=== PATIENT | male | born 1960 | race Caucasian/White ===

== ENCOUNTER 2021-10-30 14:10 | Emergency (ER) | payer OTHER ==
[2021-10-30] MEDS ORDERED: ACETAMINOPHEN TAB 500 MG TAB PO STA (16:06)
--- NOTE | 2021-10-30 18:19 | ED ---
General Adult HPI - General Chief complaint: Fever Stated complaint: Covid Positive Time Seen by Provider: 10/30/21 17:53 Source: patient, RN notes reviewed, old records reviewed Mode of arrival: ambulatory Limitations: no limitations - History of Present Illness Initial comments: 61-year-old male presenting for treatment of coronavirus. Patient requesting monoclonal antibody infusion. He has been sent to [facility] for the past 7 days. He did test positive with a home test. His daughter also tested positive. He's had fever, cough, congestion, mild dyspnea. No central chest pain. - Related Data Home Medications Medication Instructions Recorded Confirmed Cholecalciferol [Vitamin D3 (25 50 mcg PO DAILY 10/30/21 10/30/21 Mcg = 1000 Iu)] Desvenlafaxine Succinate [Pristiq] 100 mg PO DAILY 10/30/21 10/30/21 Glucosamine HCl/Chondroitin Toussaint 1 cap PO BID 10/30/21 10/30/21 [Glucosamine-Chondroitin Cap] Multivitamins, Thera [Multivitamin 1 tab PO DAILY 10/30/21 10/30/21 (formulary)] Potassium Gluconate [Potassium 99 mg PO DAILY 10/30/21 10/30/21 Gluconate ER] Terazosin [Hytrin] 2 mg PO HS 10/30/21 10/30/21 Testosterone Cypionate 150 mg IM Q14D 10/30/21 10/30/21 [Depo-Testosterone] amLODIPine [Norvasc] 10 mg PO DAILY 10/30/21 10/30/21 lisinopriL [Zestril] 20 mg PO DAILY 10/30/21 10/30/21 Previous Rx's Medication Instructions Recorded Dexamethasone [Decadron] 6 mg PO DAILY 5 Days #5 tablet 10/30/21 Allergies Allergy/AdvReac Type Severity Reaction Status Date / Time No Known Allergies Allergy Verified 10/30/21 19:07 Review of Systems ROS Statement: Those systems with pertinent positive or pertinent negative responses have been documented in the HPI. ROS Other: All systems not noted in ROS Statement are negative. Past Medical History Past Medical History: Hypertension History of Any Multi-Drug Resistant Organisms: None Reported Past Surgical History: Back Surgery Past Psychological History: PTSD Smoking Status: Never smoker Past Alcohol Use History: None Reported Past Drug Use History: None Reported General Exam Limitations: no limitations General appearance: alert, in no apparent distress Head exam: Present: atraumatic, normocephalic Eye exam: Present: normal appearance, PERRL ENT exam: Present: normal exam Neck exam: Present: normal inspection. Absent: tenderness, meningismus Respiratory exam: Present: rhonchi. Absent: respiratory distress Cardiovascular Exam: Present: regular rate, normal rhythm GI/Abdominal exam: Present: soft. Absent: distended, tenderness Extremities exam: Present: normal inspection, normal capillary refill. Absent: pedal edema Neurological exam: Present: alert, oriented X3, CN II-XII intact. Absent: motor sensory deficit Psychiatric exam: Present: normal affect, normal mood Skin exam: Present: warm, dry, intact. Absent: cyanosis, diaphoretic Course Vital Signs 10/30/21 10/30/21 15:58 19:05 Temperature 102.6 F H 100.2 F H Pulse Rate 83 73 Respiratory 22 18 Rate Blood Pressure 135/82 105/64 O2 Sat by Pulse 92 L 92 L Oximetry Medical Decision Making - Medical Decision Making 61-year-old male with coronavirus. This was a home test, test is repeated in the emergency department. He is transfused monoclonal antibodies. His oxygen saturation is 94% on room air with very mild dyspnea. He will take vitamin C, zinc, vitamin D at home. Return parameters were discussed. He will monitor his oxygen level with pulse oximeter at home. - Lab Data Lab Results 10/30/21 Range/Units 18:09 Coronavirus (PCR) Detected A (Not Detectd) Disposition Clinical Impression: COVID-19 Disposition: HOME SELF-CARE Condition: Fair Instructions (If sedation given, give patient instructions): Coronavirus Disease 2019 (COVID-19) Prescriptions: Dexamethasone [Decadron] 6 mg PO DAILY 5 Days #5 tablet Is patient prescribed a controlled substance at d/c from ED?: No Referrals: None,Stated [Primary Care Provider] - 1-2 days Time of Disposition: 18:19
[2021-10-30] MEDS ORDERED: SODIUM CHLORIDE 0.9% 50 ML IVPB ONE (18:45)
[2021-10-30] MEDS ORDERED: SOTROVIMAB (EUA) 500 MG in SODIUM CHLORIDE 0.9% 100 ML IVPB ONE (18:45)
[2021-10-30] MEDS ORDERED: dexAMETHasone 2 MG TAB PO STA (19:53)
[2021-10-30 20:31] VITALS: TEMP 98.9
[2021-10-30 21:02] VITALS: BP 111/52; PULSE 72; RESP 18
== END 2021-10-30 21:02 | disposition home or self-care (01) ==
LOC: EC 14:10
DX: U07.1 COVID-19 (principal); I10 Essential (primary) hypertension; F43.10 Post-traumatic stress disorder, unspecified; Z79.899 Other long term (current) drug therapy
CPT/HCPCS: 99283; 96365; 87635; J8540; Q0247

== ENCOUNTER 2021-11-01 13:05 | Emergency (ER) | payer OTHER ==
--- NOTE | 2021-11-01 13:43 | ED ---
General Adult HPI - General Chief complaint: Shortness of Breath Stated complaint: COVID + w/ Symptoms Time Seen by Provider: 11/01/21 13:07 Source: patient, EMS, RN notes reviewed Mode of arrival: EMS - History of Present Illness Initial comments: 61-year-old male with a past medical history of hypertension presents to the emergency room for a chief complaint of shortness of breath. Patient has had COVID-19 symptoms for 2 days now. He did receive the antibodies. Patient was not vaccinated. Patient is concerned he could have a pulmonary embolism as he knows someone had one early on in the disease course. States that his niece sent him in to be evaluated for this. Patient has no other complaints at this time including chest pain, abdominal pain, nausea or vomiting, headache, or visual changes. - Related Data Home Medications Medication Instructions Recorded Confirmed Cholecalciferol [Vitamin D3 (25 50 mcg PO DAILY 10/30/21 10/30/21 Mcg = 1000 Iu)] Desvenlafaxine Succinate [Pristiq] 100 mg PO DAILY 10/30/21 10/30/21 Glucosamine HCl/Chondroitin Toussaint 1 cap PO BID 10/30/21 10/30/21 [Glucosamine-Chondroitin Cap] Multivitamins, Thera [Multivitamin 1 tab PO DAILY 10/30/21 10/30/21 (formulary)] Potassium Gluconate [Potassium 99 mg PO DAILY 10/30/21 10/30/21 Gluconate ER] Terazosin [Hytrin] 2 mg PO HS 10/30/21 10/30/21 Testosterone Cypionate 150 mg IM Q14D 10/30/21 10/30/21 [Depo-Testosterone] amLODIPine [Norvasc] 10 mg PO DAILY 10/30/21 10/30/21 lisinopriL [Zestril] 20 mg PO DAILY 10/30/21 10/30/21 Previous Rx's Medication Instructions Recorded Dexamethasone [Decadron] 6 mg PO DAILY 5 Days #5 tablet 10/30/21 Allergies Allergy/AdvReac Type Severity Reaction Status Date / Time No Known Allergies Allergy Verified 11/01/21 13:13 Review of Systems ROS Statement: Those systems with pertinent positive or pertinent negative responses have been documented in the HPI. ROS Other: All systems not noted in ROS Statement are negative. Past Medical History Past Medical History: Hypertension History of Any Multi-Drug Resistant Organisms: None Reported Past Surgical History: Back Surgery Past Psychological History: PTSD Smoking Status: Never smoker Past Alcohol Use History: None Reported Past Drug Use History: None Reported General Exam General appearance: alert, in no apparent distress Head exam: Present: atraumatic Eye exam: Present: normal appearance, PERRL, EOMI ENT exam: Present: normal exam, mucous membranes moist Neck exam: Present: normal inspection, full ROM. Absent: tenderness Respiratory exam: Present: normal lung sounds bilaterally. Absent: respiratory distress, wheezes Cardiovascular Exam: Present: regular rate, normal rhythm, normal heart sounds Course Vital Signs 11/01/21 11/01/21 11/01/21 13:09 13:21 14:59 Temperature 98.6 F Pulse Rate 71 63 Respiratory 18 18 20 Rate Blood Pressure 121/71 O2 Sat by Pulse 92 L 92 L Oximetry 11/01/21 15:43 Temperature 98.5 F Pulse Rate 66 Respiratory 18 Rate Blood Pressure 136/81 O2 Sat by Pulse 93 L Oximetry EKG Findings - EKG Comments: EKG Findings:: NSR, vent rate 62, pr int 162, QTc 406 Medical Decision Making - Medical Decision Making 61 year old male presents for worsening shortness of breath. He is COVID-19 positive. He is not vaccinated. He did get antibodies 2 days ago and was prescribed Decadron but did not pick this up. CBC CMP unremarkable. D-dimer is within normal limits. Inflammatory markers are slightly elevated. Chest x-ray does show pneumonia consistent with COVID-19 pneumonia. We will give patient a dose of IV Decadron. 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 I did discuss strict return parameters with patient as he is currently 92%. If he gets any more short of breath he will need to return to the emergency room sooner he can recheck his oxygen levels. He will otherwise follow-up with his doctor. - Lab Data Result diagrams: 11/01/21 13:48 11/01/21 13:48 Lab Results 11/01/21 11/01/21 11/01/21 Range/Units 13:48 13:48 13:48 WBC 3.5 L (3.8-10.6) k/uL RBC 5.24 (4.30-5.90) m/uL Hgb 16.7 (13.0-17.5) gm/dL Hct 47.6 (39.0-53.0) % MCV 90.9 (80.0-100.0) fL MCH 31.9 (25.0-35.0) pg MCHC 35.1 (31.0-37.0) g/dL RDW 13.6 (11.5-15.5) % Plt Count 205 (150-450) k/uL MPV 7.5 Neutrophils % 75 % Lymphocytes % 17 % Monocytes % 6 % Eosinophils % 0 % Basophils % 0 % Neutrophils # 2.6 (1.3-7.7) k/uL Lymphocytes # 0.6 L (1.0-4.8) k/uL Monocytes # 0.2 (0-1.0) k/uL Eosinophils # 0.0 (0-0.7) k/uL Basophils # 0.0 (0-0.2) k/uL PT 10.6 (9.0-12.0) sec INR 1.0 (<1.2) APTT 23.9 (22.0-30.0) sec D-Dimer 0.30 (<0.60) mg/L FEU Sodium 136 L (137-145) mmol/L Potassium 4.8 (3.5-5.1) mmol/L Chloride 101 (98-107) mmol/L Carbon Dioxide 24 (22-30) mmol/L Anion Gap 11 mmol/L BUN 32 H (9-20) mg/dL Creatinine 0.90 (0.66-1.25) mg/dL Est GFR (CKD-EPI)AfAm >90 (>60 ml/min/1.73 sqM) Est GFR (CKD-EPI)NonAf >90 (>60 ml/min/1.73 sqM) Glucose 146 H (74-99) mg/dL Calcium 8.1 L (8.4-10.2) mg/dL Magnesium 2.3 (1.6-2.3) mg/dL Total Bilirubin 0.7 (0.2-1.3) mg/dL AST 45 (17-59) U/L ALT 37 (4-49) U/L Alkaline Phosphatase 41 (38-126) U/L Lactate Dehydrogenase 884 H (313-618) U/L C-Reactive Protein 3.5 H (<1.0) mg/dL Total Protein 6.6 (6.3-8.2) g/dL Albumin 3.8 (3.5-5.0) g/dL Disposition Clinical Impression: COVID-19 Disposition: HOME SELF-CARE Condition: Good Instructions (If sedation given, give patient instructions): Coronavirus Disease 2019 (COVID-19) Additional Instructions: Please take your steroid as prescribed. If starting tomorrow. You were given a dose IV here in the emergency room. Monitor symptoms. If you have any worsening shortness of breath you need to return to the emergency room. Is patient prescribed a controlled substance at d/c from ED?: No Referrals: Afia Zarate MD [STAFF PHYSICIAN] - 1-2 days Time of Disposition: 15:46
[2021-11-01 14:05] LABS: Basophils % (A) 0 %; Eosinophils % (A) 0 %; HCT 47.6 % (39.0-53.0); HGB 16.7 gm/dL (13.0-17.5); Lymphocytes # (A) 0.6 k/uL (1.0-4.8); Lymphocytes % (A) 17 %; MCH 31.9 pg (25.0-35.0); MCHC 35.1 g/dL (31.0-37.0); MCV 90.9 fL (80.0-100.0); Mean Platelet Volume 7.5; Monocytes # (A) 0.2 k/uL (0-1.0); Monocytes % (A) 6 %; Neutrophils # (A) 2.6 k/uL (1.3-7.7); Neutrophils % (A) 75 %; Platelet Count 205 k/uL (150-450); RBC 5.24 m/uL (4.30-5.90); RDW 13.6 % (11.5-15.5); WBC 3.5 k/uL (3.8-10.6)
--- NOTE | 2021-11-01 14:16 | XR ---
EXAMINATION TYPE: XR chest 1V portable DATE OF EXAM: 11/01/2021 COMPARISON: NONE HISTORY: Covid 19 pneumonia suspected, cough and shortness of breath TECHNIQUE: Single frontal view of the chest is obtained. FINDINGS: Patchy densities present within the bilateral lungs. There is no evident pneumothorax or p leural effusion. Cardiac mediastinal silhouette appears prominently possibly due to technique. Bone m ineralization is normal. IMPRESSION: Correlate for pneumonia, additional findings above. Follow-up suggested.
[2021-11-01 14:21] LABS: ALT 37 U/L (4-49); African American GFR (CKD) >90 (>60 ml/min/1.73 sqM); Albumin 3.8 g/dL (3.5-5.0); Anion Gap 11 mmol/L; Blood Urea Nitrogen 32 mg/dL (9-20); C Reactive Protein 3.5 mg/dL (<1.0); Calcium 8.1 mg/dL (8.4-10.2); Carbon Dioxide 24 mmol/L (22-30); Chloride 101 mmol/L (98-107); Glucose 146 mg/dL (74-99); LDH 884 U/L (313-618); Non-African American GFR(CKD) >90 (>60 ml/min/1.73 sqM); Sodium 136 mmol/L (137-145); Total Bilirubin 0.7 mg/dL (0.2-1.3); Total Protein 6.6 g/dL (6.3-8.2)
[2021-11-01 14:22] LABS: Magnesium 2.3 mg/dL (1.6-2.3); Potassium 4.8 mmol/L (3.5-5.1)
[2021-11-01 14:23] LABS: AST 45 U/L (17-59); Alkaline Phosphatase 41 U/L (38-126)
[2021-11-01 14:39] LABS: Partial Thromboplastin Time 23.9 sec (22.0-30.0); Prothrombin Time 10.6 sec (9.0-12.0)
[2021-11-01 15:43] VITALS: BP 136/81; PULSE 66; RESP 18; TEMP 98.5
[2021-11-01] MEDS ORDERED: DEXAMETHASONE SOD PHOSPHATE 10 MG/ML 1 ML VIAL IVP STA (15:44)
== END 2021-11-01 16:07 | disposition home or self-care (01) ==
LOC: EC 13:05
DX: U07.1 COVID-19 (principal); I10 Essential (primary) hypertension; F43.10 Post-traumatic stress disorder, unspecified
CPT/HCPCS: 36415; 93005; 85379; 80053; 82728; 83615; 83735; 85025; 85610; 85730; 86140; 84145; 71045; 99285; 96374; J1100